=== PATIENT | female | born 1950 | race Two or more races ===

== ENCOUNTER 2024-12-03 17:05 | Emergency (ER) | payer BC, OTHER ==
[~2024-12-03] VITALS: Ht 152.4 cm; Wt 47.6 kg
[2024-12-03] MEDS ORDERED: CARISOPRODOL350 MG PO (17:28)
[2024-12-03] MEDS ORDERED: TRAMADOL HCL 50 MG TABLET PO STA (18:47)
[2024-12-03] MEDS ORDERED: KETOROLAC TROMETHAMINE 30 MG VIAL IM STA (21:37)
[2024-12-03] MEDS ORDERED: KETOROLAC TROMETHAMINE 30 MG VIAL ONE (22:09)
[2024-12-03 22:27] LABS: HEMATOCRIT 45.2 % (36.0-45.00); HEMOGLOBIN 15.4 g/dL (12.0-15.00); MEAN CELL VOLUME 91.1 fL (80.00-100.00); MEAN CORPUSCULAR HEMOGLOBIN 31.1 pg (27.00-32.0); MEAN CORPUSCULAR HGB CONC 34.1 g/dl (32.0-36.0); PLATELET COUNT 347 K/uL (150-450); RED BLOOD COUNT 4.96 M/uL (4.00-6.00); RED CELL DISTRIBUTION WIDTH 13.8 % (11.5-14.5)
[2024-12-03 22:53] LABS: CALCIUM 10.3 mg/dL (8.5-10.1); CREATININE SERUM 0.71 mg/dL (0.55-1.02); GFR 80.69; POTASSIUM 4.44 mEq/L (3.5-5.1)
[2024-12-03 22:55] LABS: INR 1.05; PARTIAL THROMBOPLASTIN TIME 26.1 SECONDS (22.0-34.0); PROTHROMBIN TIME 11.4 SECONDS (9.0-11.5)
== END 2024-12-03 22:15 | disposition home or self-care (01) ==
LOC: ER 17:08
PROVIDERS: General Practice
DX: S62.101A Fracture of unspecified carpal bone, right wrist, initial encounter for closed fracture (principal); W19.XXXA Unspecified fall, initial encounter; Y93.89 Activity, other specified; Y92.89 Other specified places as the place of occurrence of the external cause; Y99.8 Other external cause status; Z88.5 Allergy status to narcotic agent; Z91.041 Radiographic dye allergy status